=== PATIENT | male | born 1950 | race Caucasian/White ===

== ENCOUNTER 2016-11-22 14:04 | Observation (INO) | payer OTHER ==
[~2016-11-22] VITALS: Ht 177.8 cm; Wt 90.7 kg
--- NOTE | 2016-11-22 14:13 | NUR ---
PT TO ED FOR C/C OF UNABLE TO VOID NORMAL, FOR LAST WEEK PT HAS BEEN HAVING A HARDER TIME VOIDING, GIVEN SCRIPT FOR BACTRIM LAST WEEK BY UROLOGIST IN [place], BUT YESTERDAY THE DIFFICULTY VOIDING BECAME SEVERE AND HASN'T HAD A NORMAL VOID FOR A WEEK.
--- NOTE | 2016-11-22 14:49 | NUR ---
SEEN BY DOCK SUPERINTENDENT
[2016-11-22] MEDS ORDERED: SPRYCEL20 MG PO (14:57)
[2016-11-22] MEDS ORDERED: SULFAMETHOXAZO1 EAC1 PO (14:57)
--- NOTE | 2016-11-22 15:06 | NUR ---
DR MELO AT BEDSIDE WITH PATIENT
--- NOTE | 2016-11-22 15:41 | ED GI/GU/ABDOMINAL COMPLAINT ---
History of Present Illness General Chief Complaint: Male Genitourinary Problems Stated Complaint: SENT BY DR. GARNER, PROSTATE PROBLEMS Vital Signs & Intake/Output Vital Signs & Intake/Output Vital Signs Date Time Temp Pulse Resp B/P B/P Pulse O2 O2 Flow FiO2 Mean Ox Delivery Rate 11/22 1714 66 22 162/78 98 Nasal 2.0L Cannula 11/22 1410 97.7 57 15 148/93 95 Room Air Room Air Reconcile Medications Dasatinib (Sprycel) (Unknown Strength) TABLET (Unknown Dose) PO DAILY CML ( Reported) Sulfamethoxazole/Trimethoprim (Sulfamethoxazole-Tmp Ds Tablet) 800 MG-160 MG TABLET 1 TAB PO BID ?UTI (Reported) Triage Note: PT TO ED FOR C/C OF UNABLE TO VOID NORMAL, FOR LAST WEEK PT HAS BEEN HAVING A HARDER TIME VOIDING, GIVEN SCRIPT FOR BACTRIM LAST WEEK BY UROLOGIST IN [place], BUT YESTERDAY THE DIFFICULTY VOIDING BECAME SEVERE AND HASN'T HAD A NORMAL VOID FOR A WEEK. HPI: Mr. Holden 66 YO M PMH of CML and he is on Sprycel(dasatinib) presented to ED with CC of difficulty in urination and dribbling of urine for last one week. Patient reported that he called to his pcp in [place] and he prescribed him Bectrim because he was thinking that it's UTI. According to patient he had UTI in April 2016 that by relieved by Bectrim and also told that he had couple of episodes of UTI in the past. He also reported frequency, urgency and nocturia. Patient denied burning urination, pain in flank, fever, chills, blood in urine, chest pain, palpitation, dysnea and cough. (MONICA ZEPEDA,MARIE) General Source: patient, family Exam Limitations: no limitations Allergies Coded Allergies: Iodine and Iodide Containing Produc (Severe, ANAPHYLAXIS--ONLY WITH PARENTERAL, TOPICAL OK PER PT 11/22/16) Triage Nurses Notes Reviewed? yes (KAMERON ZEPEDA,MICHAEL Sargent) Past History Travel History Traveled to [place] past 21 day No Medical History Musculoskeletal: TWO FAKE HIPS Blood Disorders: NONE Cancer(s): CML Psychosocial History What is your primary language Hebrew Tobacco Use: Quit >30 days ago ETOH Use: occasional use Illicit Drug Use: denies illicit drug use (MONICA ZEPEDA,MARIE) Medical History Any Pertinent Medical History? see below for history Surgical History Surgical History: non-contributory Family History Hx Contributory? No (KAMERON ZEPEDA,MICHAEL Sargent) Review of Systems Review of Systems Constitutional: Reports: no symptoms. EENTM: Reports: no symptoms. Respiratory: Reports: no symptoms. Cardiovascular: Reports: no symptoms. Genitourinary: Reports: frequency, nocturia, urgency. Musculoskeletal: Reports: no symptoms. Skin: Reports: no symptoms. Neurological/Psychological: Reports: no symptoms. (MONICA ZEPEDA,MARIE) Review of Systems GI: Reports: see HPI, abdominal pain. Hematologic/Endocrine: Reports: no symptoms. Immunologic/Allergic: Reports: no symptoms. All Other Systems: Reviewed and Negative (KAMERON ZEPEDA,MICHAEL Sargent) Physical Exam Physical Exam General Appearance: no apparent distress Head: atraumatic Eyes: Bilateral: normal appearance, PERRL, EOMI, normal inspection. Ears, Nose, Throat, Mouth: hearing grossly normal Neck: normal inspection Respiratory: normal breath sounds Cardiovascular: regular rate/rhythm Gastrointestinal: normal bowel sounds Extremities: normal range of motion Neurologic/Psych: awake, alert, oriented x 3, normal gait Skin: intact, normal color, warm/dry (MONICA ZEPEDA,MARIE) Physical Exam Rectal: normal inspection, normal rectal tone Back: normal inspection, normal range of motion Core Measures ACS in differential dx? No Severe Sepsis Present: No Septic Shock Present: No (KAMERON ZEPEDA,MICHAEL Sargent) Progress Differential Diagnosis: urinary retention, urethritis, UTI/pyelo Plan of Care: Orders Procedure Date/time Status Add-on Test (ER Only) 11/22 1921 Active PARTIAL THROMBOPLASTIN TIME 11/22 1920 Active PROTHROMBIN TIME 11/22 1920 Active COMPREHENSIVE METABOLIC PANEL 11/22 1920 Active CBC WITHOUT DIFFERENTIAL 11/22 1920 Active URINALYSIS 11/22 1411 Complete Current Medications Sig/Delmer Start time Last Medication Dose Stop Time Status Admin Cefazolin Sodium 1,000 MG ONCE ONE 11/22 1929 UNVr (Kefzol-Ancef Inj) 11/22 1930 Morphine Sulfate 5 MG ONCE ONE 11/22 1929 UNVr (Morphine) 11/22 1930 Laboratory Tests 11/22/161921: Sodium Pending, Potassium Pending, Chloride Pending, Carbon Dioxide Pending, Anion Gap Pending, BUN Pending, Creatinine Pending, BUN/Creatinine Ratio Pending , Glucose Pending, Calcium Pending, Total Bilirubin Pending, AST Pending, ALT Pending, Alkaline Phosphatase Pending, Total Protein Pending, Albumin Pending, Globulin Pending, Albumin/Globulin Ratio Pending, PT Pending, INR Pending, APTT Pending, CBC w Diff Pending, WBC Pending, RBC Pending, Hgb Pending, Hct Pending, MCV Pending, MCH Pending, RDW Pending, Plt Count Pending, MPV Pending, PUBS MCHC Pending 11/22/16 1413: Urine Color YEL, Urine Clarity CLEAR, Urine pH 6.0, Ur Specific [place] 1.010, Urine Protein NEG, Urine Ketones NEG, Urine Nitrite NEG, Urine Bilirubin NEG, Urine Urobilinogen 0.2, Ur Leukocyte Esterase NEG, Ur Microscopic EXAM NOT REQUIRED, Urine Hemoglobin NEG, Urine Glucose NEG Patient has urinary retension, we have planned to pass Dickey's catheter and send him home. His UA turned out negative and patient was informed about the results. (MONICA ZEPEDA,MARIE) Initial ED EKG: none Comments: Dr. Garner is at the bedside. (KAMERON ZEPEDA,MICHAEL Sargent) Departure Departure Condition: Stable (MARIE ANDERSON MD) Departure Disposition: STILL A PATIENT Clinical Impression Primary Impression: Urinary retention Referrals: ARYAN ZEPEDA,EVARISTO White (PCP/Family) PASCUAL ZEPEDA,GILMAR Carrion Departure Forms: Customer Survey General Discharge Information Observation Note Spoke With: FOZIA BELLAMY MDFlor Physician Advisor Notified: MICHAEL MELO MD Place Patient In: Non-ED OBS Care Area Rationale for Observation: My rational for observation is as follows [IR FOR SUPRAPUBIC CATHETER, IV ABX, RE-EVAL IN AM FOR ADEQUATE DRAINAGE]. Resident Co-Sign Statement Statement: ED Attending supervision documentation- [X] I saw and evaluated the patient. I have also reviewed all the pertinent lab results and diagnostic results. I agree with the findings and the plan of care as documented in the Resident's documentation. [X] I have reviewed the ED Record and agree with the Resident's documentation. [] Additions or exceptions (if any) to the Resident's note and plan are summarized below: [PT PRESENTS WITH OVERFLOW INCONTINENCE. UNABLE TO PASS CATHETER. DR. GARNER AT BEDSIDE. PT TO HAVE IR PLACEMENT OF SUPRAPUBIC CATH.] (KAMERON ZEPEDA,MICHAEL Sargent)
--- NOTE | 2016-11-22 15:57 | NUR ---
SEEN BY DR MELO; BLADDER SCAN DONE IMMEDIATLY AFTER VOIDING WITH SIGNIFICANTLY DISTENDED BLADDER X5 IMAGES. UROJET OBTAINED AND APPLIED; PT C/O INCREASED BURNING WITH LIDOCAINE WHICH DID NOT SUBSIDE AFTER 5+MIN. ATTEMPTED PLACEMENT OF 16F MESSINA; PT VERY ANXIOUS AND IN SEVERE PAIN; UNABLE TO PASS CATHETER PAST PROSTATE. D/W MD, PT MEDICATED WITH DILAUDID/VALIUM AND AWAITING EFFECT OF MEDS AT THIS TIME.
--- NOTE | 2016-11-22 16:14 | NUR ---
PT REPORTS FEELING EFFECT OF MEDS BUT STILL C/O SEVERE PAIN AND ANXIETY. DISTRIBUTION/BULK SUPPLY CALLED AGAIN FOR COUDE. MD INFORMED AND ADDL VALIUM GIVEN.
--- NOTE | 2016-11-22 16:51 | NUR ---
DR MELO IN WITH PATIENT
--- NOTE | 2016-11-22 17:30 | NUR ---
PT REFUSED TO CONTINUE WITH ATTEMPTS TO PLACE MESSINA WITHOUT SEDATION. CONSENTS AND PREP FOR MODERATE SEDATION DONE; MD THEN CONTACTED BY UROLGIST DR GARNER WHO STATED HIS SCHEDULE HAS CHANGED AND HE IS EN ROUTE TO HOSPITAL TO PLACE CATH.
[2016-11-22 19:32] LABS: HEMATOCRIT 30.3 % (42-52); MEAN CORPUSCULAR HGB 21.9 PG (27.0-31.0); MEAN CORPUSCULAR HGB CONC 31.9 G/DL (33.0-37.0); MEAN CORPUSCULAR VOLUME 68.7 FL (80.0-94.0); MEAN PLATELET VOLUME 10.7 FL (7.4-10.4); PLATELET COUNT 144 /CUMM (130-400); RBC DISTRIBUTION WIDTH 16.5 % (11.5-14.5); RED BLOOD CELL CT 4.41 /CUMM (4.70-6.10); WHITE BLOOD CELL COUNT 3.7 /CUMM (4.8-10.8)
[2016-11-22 19:41] LABS: PT 11.2 SEC (9.4-12.5); PTT 29 SEC (25-37)
--- NOTE | 2016-11-22 20:04 | NUR ---
MULTIPLE ATTEMPTS BY DR GARNER TO PLACE MESSINA AND THEN S/P TUBE AT BEDSIDE UNSUCESSFUL. CYSTOSCOPY DONE WHEN MESSINA UNABLE TO PASS, PER MD "FALSE PASSAGE IN URETHRA." MULTIPLE ATTEMPTS FOR S/P TUBE AFTER THIS POINT, UNABLE TO PLACE TUBE BUT DID DRAIN 3-400CC URINE FROM BLADDER WITH SPINAL NEEDLE. INCISION SUTURED BY RESIDENT, RADIOLOGY CALLED PER REQUEST OF UROLOGY TO CALL IN IR FOR US/CT GUIDED S/P TUBE PLACEMENT. PT MEDICATED WITH MORPHINE DURING PROCEDURE PER REQUEST OF UROLOGY AND KEFZOL INFUSED AFTER IN PREP FOR IR. PT/FIANCE AWARE OF POC AND THAT PT IS TO REMAIN NPO. PT REPORTS SOME RELIEF OF DISCOMFORT AT THIS TIME.
--- NOTE | 2016-11-22 20:20 | NUR ---
Emergency Dept UC Admit Note: To be admitted to [facility] by DR BELLAMY with ? UTI as the diagnosis, to GEN MED/OBS location. Nursing County Director Welfare and admitting notified 11/22/16 at 1945 PT WILL GO TO ROOM [id number]
--- NOTE | 2016-11-22 20:44 | History & Physical ---
TIERA ZEPEDA,[facility] 11/22/162042: General Information and HPI MD Statement: I have seen and personally examined GRACE CRAWFORD and documented this H&P. Source of Information: patient, family, old records Exam Limitations: no limitations History of Present Illness: The patient is a 66 year old M with a PMH of recurrent UTI treated with antibiotics and CML on dastinib who presented with worsening difficulty urinating/dribbling, increase frequency, urgency, and nocturia x1 week. The patient states these symptoms are similar to his past UTI symptoms. He recently moved to [place] from [place] and called his PCP regarding these symptoms for a script of Bactrim. He took the Bactrim for 5 days and noticed an improvement in his symptoms but noticed decreased urination yesterday. He spoke to Dr. Jordan ( urologist) who recommended him to go to the ED. ED Bladder scan showed distended bladder and attempts of sow unsucessful. Then multiple attempts by Dr. Jordan to place sow and then s/p tube also unsuccessful. Cystoscopy with down when the Sow was unable to pass. Cystoscopy showed false passage and urethra and blood. Spinal needle was used to drain 3-400 mL of urine from the bladder. Radiology was then called by the request of urology for an ultrasound/CT guided S/P tube placement. He currently reports abdominal distension. He denies any burning, fevers, n/v/, chills, hematuria, or flank pain. He denies CP, sob, cough, or palpitations. Allergies/Medications Allergies: Coded Allergies: Iodine and Iodide Containing Produc (Severe, ANAPHYLAXIS--ONLY WITH PARENTERAL, TOPICAL OK PER PT 11/22/16) Past History Travel History Traveled to [place] past 21 day No Medical History Musculoskeletal: B/l hip replacement Blood Disorders: NONE Cancer(s): CML Surgical History Surgical History: hip replacement (b/l secondary to steroids) Past Family/Social History Family History Relations & Conditions if any FATHER FH: skin cancer MOTHER Cardiac disorder in mother Psychosocial History ETOH Use: occasional use Illicit Drug Use: denies illicit drug use Review of Systems Review of Systems Constitutional: Denies: chills, fever. Cardiovascular: Denies: chest pain, palpitations. Respiratory: Denies: cough, short of breath. GI: Reports: distention. Genitourinary: Reports: frequency. Exam & Diagnostic Data Last 24 Hrs of Vital Signs/I&O Vital Signs Date Time Temp Pulse Resp B/P B/P Pulse O2 O2 Flow FiO2 Mean Ox Delivery Rate 11/22 2006 98.7 67 16 128/68 97 Room Air 11/22 1714 66 22 162/78 98 Nasal 2.0L Cannula 11/22 1410 97.7 57 15 148/93 95 Room Air Room Air Intake & Output 11/22 1600 11/22 0800 11/22 0000 Intake Total Output Total Balance Patient 200 lb Weight Weight Reported by Patient Measurement Method Physical Exam General Appearance Alert, Oriented X3, Cooperative, No Acute Distress Skin No Rashes Skin Temp/Moisture Exam: Warm/Dry HEENT Atraumatic, PERRLA Cardiovascular Regular Rate, Normal S1, Normal S2, No Murmurs Lungs Clear to Auscultation Abdomen Normal Bowel Sounds, Soft, No Tenderness, suprapubic incision site secondary to cathether attempt Extremities No Clubbing, No Cyanosis, No Edema Last 24 Hrs of Labs/Shine: Laboratory Tests 11/22/16 192: Anion Gap 13, Estimated GFR > 60, BUN/Creatinine Ratio 16.0, Glucose 105 H, Calcium 9.4, Total Bilirubin 1.4 H, AST 30, ALT 38, Alkaline Phosphatase 42, Total Protein 7.5, Albumin 4.6, Globulin 2.9, Albumin/Globulin Ratio 1.6, PT 11.2, INR 1.07, APTT 29, CBC w Diff MAN DIFF ORDERED, RBC 4.41 L, MCV 68.7 L, MCH 21.9 L, RDW 16.5 H, MPV 10.7 H, Segmented Neutrophils 59, Lymphocytes 35, Monocytes 4, Eosinophils 2, Platelet Estimate ADEQUATE, Hypochromic-Microcytic 1 +, Poikilocytosis FEW, Basophilic Stippling SLIGHT, Anisocytosis 1+, Microcytic Cells 2+, Target Cells RARE, Ovalocytes FEW, PUBS MCHC 31.9 L, Fld Total RBCs Counted 100 11/22/16 1413: Urine Color YEL, Urine Clarity CLEAR, Urine pH 6.0, Ur Specific [place] 1.010, Urine Protein NEG, Urine Ketones NEG, Urine Nitrite NEG, Urine Bilirubin NEG, Urine Urobilinogen 0.2, Ur Leukocyte Esterase NEG, Ur Microscopic EXAM NOT REQUIRED, Urine Hemoglobin NEG, Urine Glucose NEG Assessment/Plan Assessment: A: The patient is a 66 year old M with a PMH of recurrent UTI treated with antibiotics presenting with worsening acute urinary retention status post CT- guided s/p tube placement currently treated with ceftriaxone as prophylaxis despite a normal urinalysis. We are currently awaiting follow-up from urology ( Dr. Jordan). P: 1. Urinary retention This patient has had urinary tract infections treated with antibiotics in the past. The patient has been complaining of worsening urinary retention, increased frequency, urgency for 1 week which she states was similar to his previous UTIs. He was prescribe Bactrim for suspected UTI for 5 days by his PCP from [place]. We will begin him on 1 g ceftriaxone daily as prophylaxis. Although we do not believe this is a UTI due to a normal urinalysis. We will follow up with Dr. jordan tomorrow to see if the antibiotics will need to be continued. We will give him 1 L fluids overnight. We will start him on medications for his pain status CT-guided s/p tube placement. We need to r/o any structural causes or BPH/cancer. Urine cultures need to be followed up. -f/u urine cultures -Continue ceftriaxone -Follow-up with Dr. jordan regarding antibiotics and outpatient for futher work up -Pain management 2. CML We will continue his home medication of Dastinib for his CML. Patient will establish hematological care with Dr. Capri hendrix. -Continue Dastinib -Scheduled appointment with hematology (Dr. Capri Hendrix). Core Measures/Miscellaneous Sepsis (View Protocol) Severe Sepsis Present: No Septic Shock Septic Shock Present: No GARY SANTANA MD 11/22/162125: Assessment/Plan As Ranked By This Provider Problem List: 1. Urinary retention 2. CML (chronic myelocytic leukemia) Core Measures/Miscellaneous Acute Coronary Syndrome ACS Diagnosis: No Cerebrovascular Accident CVA/TIA Diagnosis: No Congestive Heart Failure CHF Diagnosis: No VTE (View Protocol) VTE Risk Factors: Age > 40, Cancer/chemo/oth therapy No Mech VTE prophylaxis d/t: No contraindications No VTE Pharm Prophylaxis d/t: No contraindications VTE Diagnosis: No VTE Type: NONE VTE Confirmed by (Test): NONE Miscellaneous Documentation Attending Case Discussed With: RAMONITA BELLAMY MD Primary Care Physician: EVARISTO BAEZA MD Patient sees these Specialists Dr Jordan Level of Patient Care: General Medicine Resident Review Statement Resident Statement: examined this patient, discussed with human resources intern, agreed with human resources intern Other Findings: Mr Crawford is a 66-year-old gentleman with past medical history of CML currently being treated on Dastinib and who recently moved to [place] from [place] (in September of this year) who presented to the emergency department on 11/22/2016 complaining of urinary retention and urinary dribbling. Patient states that his symptoms initially began a week ago. He is PCP from [place] called in prescription and he was given a prescription for Bactrim, which he began taking 5 days ago. Patient states he received some minor relief after beginning the antibiotic however over the last 24 hours he has noted increased urinary retention, decreased ability to void and expressing increased dribbling. His Finacee called the office of Dr Jordan, who recomended that he should come to the ED. In addition to the above the patient denies any fever, chills, nausea or vomiting. He denies any chest discomfort or shortness of breath. He denies any changes to his stool. Currently endorses mild suprapubic pain. Rated a 4/10 severity. Currently being evaluated to undergo insertion of IR guided suprapubic catheter after his course in the emergency department was unsuccessful at insertion of a sow. His clinical course from this morning on rounds at the emergency department has been relatively erratic. Multiple attempts were made to have a Sow catheter inserted. A cystoscopy was also attempted however not successful. 300-400 mL of urine was also drained via insertion of a spinal needle. ROS:At the time of our clinical interaction he denied any fever, chills, nausea, vomiting. E: Physical Examination: V: Temperature 98.2, pulse 102, respiration 18, blood pressure 135/74, saturating 98% on room air. General Appearance: AOX3 Head: atraumatic Eyes:PERRLA, EOMI Ears, Nose, Throat: normal pharynx, normal ENT inspection, hearing grossly normal Neck: normal inspection, supple, No lymphadenopathy Cardiovascular: regular rate/rhythm Respiratory: CTA Abdomen: Suprapubic scar visible. Covered with bandage. BS+. Non Tender. Abdominal Wall distended. : blood visible at urethral meatus. A/P: Mr Crawford is a 66-year-old gentleman with past medical history of CML currently being treated on Dastinib and who recently moved to [place] from [place] (in September of this year) who presented to the emergency department on 11/22/2016 complaining of urinary retention and urinary dribbling. His recurrent UTIs are concerning for potentially structural anomaly and will need to be worked up with urology. #Idiopathic Urinary Retantion Gentle IV hydration with normal saline running at 75 mL per hour. Obtain a formal Urology consult from Dr. Jordan in a.m. Continue to monitor ins and outs. Prostate exam was deferred by the admitting team overnight. Maintain the patient on IV ceftriaxone. If patient remains afebrile and white blood cell count returns within normal limits for consider following the patient off antibiotics. Urine Culture. #Hyperbilirubin Elevation slightly elevated at the time of admission. 1.4 May consider outpatient follow-up. #History of CML Continue Dastinib. Can continue care as outpatient. #DVT prophylaxis ALPS #Diet heart healthy. Code Full code JOSESITO ZEPEDA, [facility] 11/23/16 0542: General Information and HPI Allergies/Medications Home Med list Dasatinib (Sprycel) 20 MG TABLET 100 MG PO DAILY CML (Reported) Hydrocodone/Acetaminophen (Vicodin 5-300 MG Tablet) 5 MG-300 MG TABLET 2 TAB PO Q4-6 PRN Pain Sulfamethoxazole/Trimethoprim (Sulfamethoxazole-Tmp Ds Tablet) 800 MG-160 MG TABLET 1 TAB PO BID ?UTI (Reported) To complete 2 more days Attending MD Review Statement Attending Statement Attending MD Statement: examined this patient, discuss w/resident/PA/CATHODE RAY TUBE ASSEMBLER, agreed w/resident/PA/CATHODE RAY TUBE ASSEMBLER, discussed with family Attending Assessment/Plan: 66 yo M with h/o CML on Dasatinib, 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 Jordan (Urologist) who suggested him to come to ER for evaluation. Patient denies h/o BPH or any previous bladder instrumentation. While in the ER, multiple attempts were made at Sow placement but failed. Dr. Jordan tried to do suprapubic placement in the ER without success. Cystoscopy was attempted ?false passage in the urethra, incomplete cystoscopy. After this, about 300-400 cc of urine was drained from the bladder with the help of spinal needle. Patient was then sent for CT pelvis and IR guided SP cathter placement. VSS. Labs: WBC 3.7, H/H 9.7/30.3, microcytic anemia, Plt 144, UA clear. CT pelvis: marked increased bladder volume. 1. Urinary retention in the setting of recurrent UTI, need to rule out underlying structural anomaly/BPH/ cancer. GM 23 Obs, IR guided suprapubic tube was placed overnight, patient monitored until recovery in the ICU and then transferred to the medical floor. Ok to initiate diet. Obtain urine culture, IV fluids, continue IV ceftriaxone for now, Urology to follow (Dr. Jordan), with a plan to discharge and follow as outpatient for further work up. Pain management with vicodin and morphine. 2. CML. Continue dasatinib. Patient to establish Superintendent Maintenance care at [facility] with Dr. Remi Hendrix. DVT ppx Alps. Full code. Observation Initial Note - I have personally examined GRACE CRAWFORD on 11/23/16 at 1856. The disposition of GRACE CRAWFORD is uncertain at this time and before a determination can be made, he requires a period of observation for the following reasons [urinary retention of unclear etiology, requiring placement of suprapubic catheter by IR]
--- NOTE | 2016-11-22 21:00 | NUR ---
SPOKE WITH RADIOLOGIST, SPOKE WITH DR CARDONA WHO ORDERED PELVIC CT AT REQUEST OF IR . PT/FAMILY UPDATED AND TRACTOR DRILL OPERATOR NOTIFIED THAT IR IS REQUESTING CT BE AVAILABLE UPON HIS ARRIVAL.
--- NOTE | 2016-11-22 21:18 | NUR ---
HOUSE STAFF AT BEDSIDE.
--- NOTE | 2016-11-22 21:34 | NUR ---
PT TO CT SCAN. REPORT CALLED TO MICHAEL ON 2N. REPORT ALSO GIVEN TO IR NURSE ANDERS. IR SETTING UP NOW, WILL P/U PT WHEN READY; PER IR RN PT CAN GO TO FLOOR AFTER PROCEDURE.
--- NOTE | 2016-11-22 21:50 | NUR ---
IR TEAM AT BEDSIDE. IR RN STATES SHE WILL RECOVER THE PT; INFORMED THAT PER NURSING SLIP CASTER SHE MAY TAKE PT TO ICU UNTIL RECOVERED AND THEN PT WILL GO TO 2N BOOKED. NURSING SLIP CASTER REPORTS SHE HAS INFORMED ICU OF SAME.
--- NOTE | 2016-11-22 21:52 | CT SCAN REPORT ---
EXAMINATION: CT PELVIS WITHOUT CONTRAST CLINICAL INFORMATION: Urinary retention COMPARISON: None TECHNIQUE: Helical scanning was performed with submillimeter collimation through the pelvis. Sagittal and coronal multiplanar 2-D reconstructions were obtained. Findings: Exam is limited from artifact hardware bilateral hip replacements. Bladder extends up to the level of the pelvis of the mid kidneys. Marked Increased bladder volume. There is no the adenopathy here. Unable to evaluate the prostate due to artifact. No free fluid in the deep pelvis. The bowel pattern is nonobstructing. IMPRESSION: Marked increased bladder volume.
[2016-11-23] VITALS: BP 110/78
--- NOTE | 2016-11-23 00:56 | NUR ---
PATIENT ARRIVED ON UNIT AT 2355 VIA STRETCHER. PT AMBULATED TO HOSPITAL BED WITHOUT ANY DIFFICULTY AND WITH A STEADY GAIT. PT A+Ox3 AND ON RA, ACCOMPANIED BY TOBIAS. PATIENT WAS ORIENTED TO CALL CARDONA, ROOM, STAFF, SURROUNDINGS. SPT NOTED TO LOWER R ABD DRAINING DARKENED YELLOW URINE TO GRAVITY. IVF INITATED. PT COMPLAINED OF 7/10 PAIN AND DID NOT WANT TO TAKE MORPHINE. PT STATED HE ALSO THOUGHT THAT ONE VICODIN WOULD BE INEFFECTIVE. MD SANTANA WAS NOTIFIED AND A ONE TIME ORDER OF VICODIN TWO TABS WAS ORDERED AND ADMINISTERED. NO FURTHER COMPLAINTS AT THIS TIME, OBSERVATION FORM AND ASSESSMENT COMPLETE. WILL CONTINUE TO CLOSELY MONITOR.
[2016-11-23 06:30] VITALS: BP 108/64
[2016-11-23 09:29] LABS: HEMATOCRIT 27.4 % (42-52); MEAN CORPUSCULAR HGB 22.4 PG (27.0-31.0); MEAN CORPUSCULAR HGB CONC 32.3 G/DL (33.0-37.0); MEAN CORPUSCULAR VOLUME 69.4 FL (80.0-94.0); MEAN PLATELET VOLUME 12.1 FL (7.4-10.4); PLATELET COUNT 120 /CUMM (130-400); RED BLOOD CELL CT 3.94 /CUMM (4.70-6.10); WHITE BLOOD CELL COUNT 3.5 /CUMM (4.8-10.8)
--- NOTE | 2016-11-23 09:51 | PN- Housestaff ---
CLAU BUSH 11/23/16 0950: Subjective Follow-up For: Urine retention requiring IR placed suprapubic catheter Anemia Complaints: pain around the catheter Subjective: Interval history: Patient reports experiencing intermittent episodes of suprapubic discomfort around the catheter insertion site. He denies any bloody discharge from the site. Patient denies any fevers, chills, nausea or abdominal pain at this time. Review of Systems Constitutional: Reports: see HPI. Cardiovascular: Reports: no symptoms. Respiratory: Reports: no symptoms. Gastrointestinal: Reports: see HPI. Genitourinary: Reports: see HPI. Musculoskeletal: Reports: no symptoms. Objective Last 24 Hrs of Vital Signs/I&O Vital Signs Date Time Temp Pulse Resp B/P B/P Pulse O2 O2 Flow FiO2 Mean Ox Delivery Rate 11/23 0630 98.5 61 18 108/64 96 Room Air 11/23 0000 98.7 65 18 110/78 97 Room Air 11/22 2006 98.7 67 16 128/68 97 Room Air 11/22 1714 66 22 162/78 98 Nasal 2.0L Cannula 11/22 1410 97.7 57 15 148/93 95 Room Air Room Air Intake & Output 11/23 1600 11/23 0800 11/23 0000 Intake Total 1040 Output Total 900 350 Balance 140 -350 Intake, IV 600 Intake, Oral 440 Output, Urine 900 350 Patient 200 lb 200 lb Weight Weight Reported by Patient Measurement Method Physical Exam General Appearance: Alert, Cooperative, No Acute Distress Skin: suprapubic catheter inserted secured to skin at this time with no evidence of bleeding HEENT: Mucous Membr. moist/pink Cardiovascular: Regular Rate, Normal S1, Normal S2 Lungs: Clear to Auscultation, Normal Air Movement Abdomen: Normal Bowel Sounds, Soft Extremities: No Edema, Normal Pulses Current Medications: Current Medications Sig/Delmer Start time Last Medication Dose Route Stop Time Status Admin Acetaminophen/ 2 TAB Q6P PRN 11/23 0915 AC 11/23 Hydrocodone Bitart PO 0940 Acetaminophen/ 2 TAB ONCE ONE 11/23 0530 DC 11/23 Hydrocodone Bitart PO 11/23 0531 0527 Acetaminophen/ 2 TAB ONCE ONE 11/23 0030 DC 11/23 Hydrocodone Bitart PO 11/23 0031 0028 Acetaminophen/ 1 TAB Q6P PRN 11/22 2345 DC Hydrocodone Bitart PO Cefazolin Sodium 0 .STK-MED ONE 11/22 1943 DC .ROUTE Cefazolin Sodium 1,000 MG ONCE ONE 11/22 1930 DC 11/22 IV 11/22 193 1930 Ceftriaxone Sodium 1,000 MG DAILY 11/23 1000 AC 11/23 IV 0941 Diazepam 5 MG ONCE ONE 11/22 1615 DC 11/22 IM 11/22 1616 1616 Diazepam 0 .STK-MED ONE 11/22 1615 DC .ROUTE Diazepam 0 .STK-MED ONE 11/22 1552 DC .ROUTE Diazepam 5 MG ONCE ONE 11/22 1545 DC 11/22 IM 11/22 1546 1554 Etomidate 0 .STK-MED ONE 11/22 1703 DC IV Fentanyl Citrate 0 .STK-MED ONE 11/22 2209 DC .ROUTE Fentanyl Citrate 0 .STK-MED ONE 11/22 1704 DC .ROUTE Hydromorphone HCl 0 .STK-MED ONE 11/22 1550 DC .ROUTE Hydromorphone HCl 2 MG ONCE ONE 11/22 1545 DC 11/22 IM 11/22 1546 1554 Lidocaine 0 .STK-MED ONE 11/22 1802 DC .ROUTE Lidocaine 0 .STK-MED ONE 11/22 1647 DC TOP Lidocaine 0 .STK-MED ONE 11/22 1627 DC TOP Lidocaine 0 .STK-MED ONE 11/22 1516 DC TOP Lidocaine 10 ML ONCE ONE 11/22 1515 DC 11/22 TOP 11/22 1516 1554 Midazolam HCl 0 .STK-MED ONE 11/22 2209 DC .ROUTE Morphine Sulfate 2 MG Q4P PRN 11/22 2345 IV Morphine Sulfate 5 MG ONCE ONE 11/22 1930 DC 11/22 IV 11/22 1931 1837 Morphine Sulfate 0 .STK-MED ONE 11/22 1840 DC .ROUTE Non-Formulary 0 SEE ADMIN CRITERIA 11/23 0200 UNV Medication ANY Sodium Chloride 1,000 ML Q13H 11/22 2330 AC 11/23 IV 11/23 1229 0010 Tramadol HCl 50 MG TID PRN 11/22 2345 AC PO Last 24 Hrs of Lab/Shine Results Last 24 Hrs of Labs/Mics: Laboratory Tests 11/23/16 0734: Anion Gap 8, Estimated GFR > 60, BUN/Creatinine Ratio 15.6, Iron 71, TIBC 273, Ferritin Pending, CBC w Diff MAN DIFF ORDERED, WBC Pending, RBC Pending, Hgb Pending, Hct Pending, MCV Pending, MCH Pending, RDW Pending, Plt Count Pending, MPV Pending, Segmented Neutrophils Pending, PUBS MCHC Pending 11/22/16 1922: Anion Gap 13, Estimated GFR > 60, BUN/Creatinine Ratio 16.0, Glucose 105 H, Calcium 9.4, Total Bilirubin 1.4 H, AST 30, ALT 38, Alkaline Phosphatase 42, Total Protein 7.5, Albumin 4.6, Globulin 2.9, Albumin/Globulin Ratio 1.6, PT 11.2, INR 1.07, APTT 29, CBC w Diff MAN DIFF ORDERED, RBC 4.41 L, MCV 68.7 L, MCH 21.9 L, RDW 16.5 H, MPV 10.7 H, Segmented Neutrophils 59, Lymphocytes 35, Monocytes 4, Eosinophils 2, Platelet Estimate ADEQUATE, Hypochromic-Microcytic 1 +, Poikilocytosis FEW, Basophilic Stippling SLIGHT, Anisocytosis 1+, Microcytic Cells 2+, Target Cells RARE, Ovalocytes FEW, PUBS MCHC 31.9 L, Fld Total RBCs Counted 100 11/22/16 1413: Urine Color YEL, Urine Clarity CLEAR, Urine pH 6.0, Ur Specific [place] 1.010, Urine Protein NEG, Urine Ketones NEG, Urine Nitrite NEG, Urine Bilirubin NEG, Urine Urobilinogen 0.2, Ur Leukocyte Esterase NEG, Ur Microscopic EXAM NOT REQUIRED, Urine Hemoglobin NEG, Urine Glucose NEG Microbiology 11/23 0630 URINE ROUT: Urine Culture - RECD 11/24 203 LOWER RESP: Respiratory Culture - COLB 11/24 203 LOWER RESP: Gram Stain - COLB Assessment/Plan Assessment: Mr Crawford is a 66-year-old gentleman with past medical history of CML currently being treated on Dastinib and who recently moved to [place] from [place] (in September of this year) who presented to the emergency department on 11/22/2016 complaining of urinary retention and urinary dribbling. His recurrent UTIs are concerning for potentially structural anomaly and will need to be worked up with urology. 1. Urinary obstruction 2. History of CML Plan: * S/P suprapubic catheter placement patient has had good urine output. Follow- up creatinine this morning is stable. Patient will follow-up with Dr. Jordan after discharge. * A management with Vicodin 2 tabs every 4 hours as needed. Prescription provided for patient. * Advised patient to monitor for any fevers or chills and return to the ER. * He will complete 2 day course of Bactrim * We have provided a referral for oncology follow-up with Dr.Justin Hendrix Ernie continue with Desatinib 100mg daily Problem List: 1. Urinary retention 2. CML (chronic myelocytic leukemia) Pain Ratin Pain Location: Suprapubic region Pain Goal: Pain 4 or less Pain Plan: Vicodin 2 tabs every 4 hours Tomorrow's Labs & Rationales: None required. Stable for discharge DVT/Prophylaxis: mechanical Discharge Plan Discharge Disposition: home Stable for Discharge? Yes Anticipated Discharge (Day): today If Discharged Today/In 24 Hrs: enter [facility] discharge ord, CMR done TANIKA ZEPEDA,STELLA 11/23/16 1058: Attending Review Statement Attending Statement Attending MD Statement: examined this patient, discuss w/resident/PA/WOODWIND INSTRUMENT REPAIRER, agreed w/resident/PA/WOODWIND INSTRUMENT REPAIRER, discussed with family, reviewed EMR data (avail), discussed with nursing Attending Assessment/Plan: Patient seen and examined and plan of care Discussed with the house staff. Patient complains of for a urethral pain this morning which is well controlled with the Vicodin. He is currently afebrile without any fever or chills. Suprapubic catheter is intact and draining clear urine. His vital signs are stable. Lab work shows normal chemistry and source of count is 3.5. Platelet count is 120. I spoke to Dr. jordan over the phone. Plan is to discharge patient home with follow-up this week in his office. Patient will be going home with a suprapubic catheter. We will prescribe Vicodin for pain control.
[2016-11-23] MEDS ORDERED: VICODIN 5-3001 EACH PO ×2 (10:03→10:10)
--- NOTE | 2016-11-23 10:06 | Patient Discharge Instructions ---
Discharge Instructions General Discharge Information You were seen/treated for: urine obstruction You had these procedures: Upper pubic catheter placement Watch for these problems: Fevers, chills, abdominal pain Special Instructions: Please follow-up with Dr. Jordan at the next scheduled appointment. Please follow-up with your oncologist Dr Remi Hendrix Diet Continue normal diet: Yes Activity Full Activity/No Limits: Yes Acute Coronary Syndrome Inclusion Criteria At DC or during hospital stay patient has or had the following: ACS DIAGNOSIS No Discharge Core Measures Meds if any: Prescribed or Continued at Discharge Meds if any: NOT Prescribed or Continued at Discharge Congestive Heart Failure Inclusion Criteria At DC or during hospital stay patient has or had the following: CHF DIAGNOSIS No Discharge Core Measures Meds if any: Prescribed or Continued at Discharge Meds if any: NOT Prescribed or Continued at Discharge Cerebrovascular accident Inclusion Criteria At DC or during hospital stay patient has or had the following: CVA/TIA Diagnosis No Discharge Core Measures Meds if any: Prescribed or Continued at Discharge Meds if any: NOT Prescribed or Continued at Discharge Venous thromboembolism Inclusion Criteria VTE Diagnosis No VTE Type NONE VTE Confirmed by (Test) NONE Discharge Core Measures - Per Current guidelines, there needs to be overlap - treatment for the first 5 days of Warfarin therapy. - If discharged on Warfarin prior to 5 days of - overlap therapy, the patient will need to be - assessed for post discharge needs including - *Post discharge parental anticoagulation - *Warfarin and/or parental anticoagulation education - *Follow up date to check INR post discharge At least 5 days overlap therapy as Inpatient No Meds if any: Prescribed or Continued at Discharge Note: Overlap Therapy is Warfarin and Anticoagulant Meds if any: NOT Prescribed or Continued at Discharge
--- NOTE | 2016-11-23 13:52 | ULTRASOUND REPORT ---
CLINICAL HISTORY: 66-year-old male with acute urinary retention. Bedside attempt at Dickey catheter placement as well as with cystoscopic guidance were unsuccessful. Bedside attempt at suprapubic catheter placement was unsuccessful. Ultrasound-guided suprapubic catheter placement is requested. PROCEDURES: 1. Limited sonogram of the bladder. 2. Placement of an 10 [place] Swartz-Huber suprapubic catheter. PHYSICIANS: MEDICATIONS: -Versed 1.5 mg, Fentanyl 75 mcg, and Lidocaine 1% 10 mL SQ. -Antibiotics: [None]. -For additional details, please see nursing flow sheet. COMPLICATIONS: None. ESTIMATED BLOOD LOSS: < 5 mL SPECIMENS: None. CONTRAST: None. PROCEDURE NOTE: The procedure, risks, benefits, and alternatives were carefully explained to the patient and written informed consent was obtained. The patient was placed supine on the stretcher. A time out was performed. Prior to prepping the patient, a limited sonogram of the bladder was performed to localize the bladder and chose an appropriate access. The midline abdomen/pelvis was prepped and draped in usual sterile fashion. After anesthetizing the skin with 1% lidocaine, under direct ultrasound guidance, a 10 [place] Swartz-Huber catheter was advanced into the urinary bladder using trocar technique. There was immediate return of urine. The catheter was sutured to the skin with an 0 silk suture and the catheter was connected to gravity drainage. A total of 2.5 L of urine was drained via the suprapubic catheter. The catheter was connected to a StatLock. FINDINGS: 1. Markedly distended urinary bladder. 2. Successful placement of a 10 [place] Swartz-Huber suprapubic catheter. 3. Drainage of 2500 mL of urine. IMPRESSION: Successful placement of a 10 [place] Swartz-Huber suprapubic catheter.
== END 2016-11-23 11:10 ==
LOC: ERH 14:04 → 2NA 19:41 → ERHI 19:41 → ENRESERV 20:10 → 2NA 22:00 → ENPENDDIS 11-23 10:09 → 2NA 11-23 11:10
PROVIDERS: Student in an Organized Health Care Education/Training Program; ADMIT Student in an Organized Health Care Education/Training Program
DX: R33.9 Retention of urine, unspecified (principal); C92.10 Chronic myeloid leukemia, BCR/ABL-positive, not having achieved remission; E80.6 Other disorders of bilirubin metabolism
CPT/HCPCS: 6030; 36415; 81003; 82436; 87070; 87086; 96374; 96375; G0378; J0690; J0696; J3360